=== PATIENT | female | born 1955 | race Caucasian/White ===

== ENCOUNTER → 2021-09-08 | Outpatient (CLI) | payer SELFPAY ==
[~2021-09-08] MED LIST: BYETTA10 MCG/0.0; BYETTA10 MCG/0.0 SC; FLEXERIL10 MG PO; GLYBURIDE5 MG PO; JANUVIA100 MG PO; LEVEMIR10 ML SC; METFORMIN1000 MG PO; SIMVASTATIN80 MG PO
== END | disposition home or self-care (01) ==
LOC: RESCLI 00:22
PROVIDERS: ATTEND Family Medicine
DX: E11.9 Type 2 diabetes mellitus without complications (principal); Z79.4 Long term (current) use of insulin; Z79.899 Other long term (current) drug therapy

== ENCOUNTER 2021-12-04 20:18 | Emergency (ER) | payer MEDICARE ==
[2021-12-04 20:47] LABS: HEMATOCRIT 48.9 % (37.0-47.0); MEAN CELL VOLUME 88.6 fl (81.0-99.0); MEAN CORPUSCULAR HGB 28.6 pg (27.0-31.0); MEAN CORPUSCULAR HGB CONC 32.3 g/dl (33.0-37.0); PLATELET COUNT AUTOMATED 256 10*3/uL (130-400); RED BLOOD COUNT 5.52 10*6/uL (4.10-5.10); RED CELL DISTRI WIDTH 12.8 % (0-14.5); WHITE BLOOD COUNT 10.4 10*3/uL (4.8-10.8)
[2021-12-04 20:49] LABS: MANUAL DIFF REFLEX YES
[2021-12-04 21:03] LABS: CREATININE 1.32 mg/dL (0.55-1.02); POTASSIUM 4.3 mmol/L (3.5-5.1); TOTAL PROTEIN 7.5 gm/dL (6.4-8.2)
[2021-12-04 21:23] LABS: PLATELET SUFFICIENCY NORMAL (NORMAL); TOTAL CELLS COUNTED 100 #CELLS; TOXIC GRANULATION SLIGHT
[2021-12-04 23:11] LABS: BILIRUBIN Negative (Negative); BLOOD Negative (Negative); CLARITY Clear (Clear); COLOR Yellow (Yellow); GLUCOSE 3+ (Negative); KETONE 1+ (Negative); LEUKO ESTERASE Negative (Negative); NITRITE Negative (Negative); SPECIFIC GRAVITY 1.025 (1.001-1.030); UROBILINOGEN 0.2 E.U./dl (0.0-1.0)
[2021-12-04 23:32] LABS: BACTERIA TRACE
[2021-12-05] MEDS ORDERED: CIPRO500 MG PO (00:25)
[2021-12-05] MEDS ORDERED: ZOFRAN4 MG PO (00:25)
[2021-12-05] MEDS ORDERED: DICYCLOMINE HYD20 MG PO (00:25)
[2021-12-05] MEDS ORDERED: METRONIDAZOLE500 M1 PO (00:25)
== END 2021-12-05 00:42 | disposition home or self-care (01) ==
LOC: ED 20:18
PROVIDERS: Emergency Medicine
DX: R10.9 Unspecified abdominal pain (principal); R19.7 Diarrhea, unspecified; R11.0 Nausea; Z88.1 Allergy status to other antibiotic agents; Z79.899 Other long term (current) drug therapy; Z98.51 Tubal ligation status; Z90.89 Acquired absence of other organs

== ENCOUNTER → 2022-05-09 | Outpatient (CLI) | payer MEDICARE ==
[~2022-05-09] MED LIST changes: +CIPRO500 MG PO; +DICYCLOMINE HYD20 MG PO; +METRONIDAZOLE500 M1 PO; +ZOFRAN4 MG PO
== END | disposition home or self-care (01) ==
LOC: CT 09:00
PROVIDERS: ATTEND Nurse Practitioner Family
DX: I67.82 Cerebral ischemia (principal); R90.82 White matter disease, unspecified; I65.23 Occlusion and stenosis of bilateral carotid arteries

== ENCOUNTER → 2022-09-01 | Outpatient (CLI) | payer MEDICARE | END | disposition home or self-care (01) | LOC: RESCLI 00:47 | PROVIDERS: ATTEND Internal Medicine | DX: E11.9 Type 2 diabetes mellitus without complications (principal); E55.9 Vitamin D deficiency, unspecified; I10 Essential (primary) hypertension; E78.5 Hyperlipidemia, unspecified; A69.20 Lyme disease, unspecified; Z98.890 Other specified postprocedural states; Z88.8 Allergy status to other drugs, medicaments and biological substances; Z79.84 Long term (current) use of oral hypoglycemic drugs; Z79.899 Other long term (current) drug therapy ==

== ENCOUNTER → 2022-09-29 | Day surgery (SDC) | payer MEDICARE ==
[~2022-09-29] VITALS: Ht 162.5 cm; Wt 63.5 kg
[~2022-09-29] MED LIST changes: +ACIDOPHILUS1 EAC4 PO; +BALANCED B-5050 MCG PO; +CEFUROXIME AXE500 MG PO; +DAILY VITE1 EACH PO; +FLORASTOR250 MG PO; +JARDIANCE10 MG PO; -LEVEMIR10 ML SC; +LEVEMIR100 UNIT/1 SC; +METFORMIN HYD1000 MG PO; +PRAVASTATIN SOD80 MG PO; +VICTOZA 2-0.6 MG/0.1 SC; +ZESTRIL10 MG PO
[2022-09-29 07:29] VITALS: BP 143/73
[2022-09-29 08:30] VITALS: BP 110/67
[2022-09-29 08:45] VITALS: BP 90/57
[2022-09-29 09:00] VITALS: BP 118/63
== END | disposition home or self-care (01) ==
LOC: SDC 09-26 10:15
PROVIDERS: ATTEND Surgery
DX: Z12.11 Encounter for screening for malignant neoplasm of colon (principal); K57.30 Diverticulosis of large intestine without perforation or abscess without bleeding; K64.9 Unspecified hemorrhoids; Z86.010 Personal history of colon polyps; I10 Essential (primary) hypertension; E11.9 Type 2 diabetes mellitus without complications; E78.5 Hyperlipidemia, unspecified; K21.9 Gastro-esophageal reflux disease without esophagitis; M19.90 Unspecified osteoarthritis, unspecified site; M81.0 Age-related osteoporosis without current pathological fracture; Z79.899 Other long term (current) drug therapy
CPT/HCPCS: 00812; G0105

== ENCOUNTER → 2023-09-13 | Outpatient (CLI) | payer MEDICARE | END | disposition home or self-care (01) | LOC: RESCLI 10:12 | PROVIDERS: ATTEND Student in an Organized Health Care Education/Training Program | DX: E11.9 Type 2 diabetes mellitus without complications (principal); I10 Essential (primary) hypertension; K57.30 Diverticulosis of large intestine without perforation or abscess without bleeding; E55.9 Vitamin D deficiency, unspecified; E78.5 Hyperlipidemia, unspecified; A69.20 Lyme disease, unspecified; Z86.010 Personal history of colon polyps; Z79.899 Other long term (current) drug therapy; Z88.8 Allergy status to other drugs, medicaments and biological substances; Z98.890 Other specified postprocedural states; Z79.84 Long term (current) use of oral hypoglycemic drugs; Z79.82 Long term (current) use of aspirin ==